=== PATIENT | female | born 1985 | race Hispanic/Latino ===

== ENCOUNTER 2019-11-28 11:03 | Emergency (ER) | payer BC ==
[~2019-11-28] VITALS: Ht 165.1 cm; Wt 76.2 kg
[2019-11-28] MEDS ORDERED: ONDANSETRON ODT8 MG PO (12:18)
== END 2019-11-28 12:37 | disposition home or self-care (01) ==
LOC: ED 11:03
DX: A08.4 Viral intestinal infection, unspecified (principal); K29.00 Acute gastritis without bleeding
CPT/HCPCS: 99283

== ENCOUNTER 2023-06-03 09:15 | Day surgery (SDC) | payer BC ==
[~2023-06-03] VITALS: Ht 167.6 cm; Wt 81.8 kg
[~2023-06-03 09:15] MED LIST: NEXPLANON68 MG SUB-Q; ONDANSETRON ODT8 MG PO
[2023-06-03 09:37] VITALS: BP 123/81
--- NOTE | 2023-06-03 11:11 | NUR ---
06/03/23 Katy Mc PATIENT IS RESTING, WITH EYES CLOSED ON ARRIVAL TO PACU. SHE DOES NOT OPEN EYES TO MY VOICE. OXYGEN SATURATION IS 100% ON 2L VIA NC. OXYGEN IS DISCONTINUED.
[2023-06-03 11:44] VITALS: BP 119/88
--- NOTE | 2023-06-03 16:28 | OR ---
[facility] [address], [place] [address] Signed DATE OF OPERATION: 06/03/2023 SURGEON: Mumtaz Rankin MD PREOPERATIVE DIAGNOSIS: History of recent acute bright red rectal bleeding, now resolved. POSTOPERATIVE DIAGNOSES: 1. Minimal internal hemorrhoidal change. 2. Small polyp, left colon. PROCEDURE: Total colonoscopy to cecum with cold morcellation polypectomy x1. ANESTHESIA: Intravenous sedation; fentanyl 150 mcg and Versed 8 mg. INDICATION: This 37-year-old white woman is a patient of TATIANA Skinner. 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 She was noted to have rectal bleeding which was quite alarming to her including blood that was "dripping out" on April 12, 2023. The blood ultimately discontinued. She has an uncertain family history as regard to colon cancer though it is unlikely. She is admitted at this time to undergo colonoscopy. She understands the risk of bleeding, infection, and perforation. FINDINGS: The prep was good. Complete colonoscopy was undertaken to the cecum. There was a small polyp at the left colon which was excised with cold snare technique. Retroflexed view confirmed some internal hemorrhoidal change, but nothing acutely problematic at this time. DESCRIPTION OF PROCEDURE: The patient was brought to the endoscopy suite and placed in the lateral decubitus position, given intravenous sedation to the point of slurred speech and nystagmus with full cardiopulmonary monitoring. Digital rectal examination was normal. An Olympus video colonoscope was passed into the rectum and manipulated throughout the colon ultimately intubating the cecum itself. The ileocecal valve and appendiceal orifice were normal. The scope was withdrawn from that point and examination showed no sign of abnormality until the proximal descending colon where a small polyp was noted, Electronically Signed By: MUMTAZ RANKIN MD 06/03/23 1628 PATIENT NAME: JAYME LOZANO OPERATIVE REPORT DATE OF : 85 REPORT #: [id number] PHYSICIAN: MUMTAZ RANKIN MD PCP: JES MINER PA-C REPORT IS CONFIDENTIAL AND NOT TO BE RELEASED WITHOUT AUTHORIZATION [facility] [address], [place] [address] Signed this was excised with cold snare technique. Further withdrawal showed no sign of other abnormality. Retroflexed view in the rectum confirmed some internal hemorrhoidal change, but nothing acute and certainly no sign of profound disease. The scope was straightened, withdrawn and removed. The patient was taken to the recovery room in good condition. CONCLUDING DIAGNOSIS: Bleeding likely related to hemorrhoidal source. She is currently having no bleeding. PLAN: Would recommend a fiber supplement such as Metamucil one scoop p.o. daily or Citrucel at the same amount. Would recommend repeat colonoscopy in 3 to 5 years if the polyp proves to be adenomatous. If she should have recurrent bleeding, would recommend hemorrhoidal banding in the office setting. She will return to the ongoing care of TATIANA Skinner, otherwise. MD MACIEJ Arcos/DARLENE /[id number] cc: TATIANA Skinner Copies: ~ Electronically Signed By: MUMTAZ RANKIN MD 06/03/23 1628 PATIENT NAME: JAYME LOZANO OPERATIVE REPORT DATE OF : 85 REPORT #: [id number] PHYSICIAN: MUMTAZ RANKIN MD PCP: JES MINER PA-C REPORT IS CONFIDENTIAL AND NOT TO BE RELEASED WITHOUT AUTHORIZATION
== END 2023-06-03 12:05 | disposition home or self-care (01) ==
LOC: OPS 09:15 → DS 09:19 → OPS 10:30
PROVIDERS: ATTEND Surgery
PROC: 0DBM8ZZ Excision of Descending Colon, Via Natural or Artificial Opening Endoscopic (ICD-10-PCS; principal; 2023-06-03 10:30)
DX: K62.5 Hemorrhage of anus and rectum (principal); D12.4 Benign neoplasm of descending colon; K64.8 Other hemorrhoids; F32.A Depression, unspecified
CPT/HCPCS: 84703; 99153; G0500; J2250; J3010; J7121